=== PATIENT | female | born 1955 | race Caucasian/White ===

== ENCOUNTER 2020-12-19 15:45 | Emergency (ER) | payer OTHER, SELFPAY ==
[2020-12-19 15:46] VITALS: BP 123/77; PULSE 90; RESP 18; TEMP 36.4; O2SAT 98; BMI 23.0
--- NOTE | 2020-12-19 16:21 | ED_ITS ---
HPI - Allergic Reaction <Valentino Padron PA-C - Last Filed: 12/19/20 16:26> General Chief complaint: Allergic Reaction Stated complaint: Bee sting, allergic reaction Time Seen by Provider: 12/19/20 16:03 Source: patient and EMS Mode of arrival: EMS Limitations: no limitations History of Present Illness HPI narrative: Temi presents today with chief complaint of bee sting to her right hand which has caused right arm swelling and itching that took place approximately 4 hours ago. She took 50 mg of Benadryl approximately 3 hours ago which has slightly helped. The swelling has gotten worse so she called the parking line painter who then notified EMS and had her transferred here. [place] and is from [place]. She denies any history of anaphylaxis but does state that she gets allergic reactions from bee stings. She denies any throat tightness, shortness of breath, chest pain, difficulty swallowing, difficulty breathing, abdominal pain, nausea or any other acute concerns or complaints at this time. Related Data Previous Rx's Medication Instructions Recorded famotidine 40 mg tablet 40 mg PO DAILY #7 tab 12/19/20 fexofenadine 60 mg tablet 60 mg PO BID #14 tab 12/19/20 Allergies Allergy/AdvReac Type Severity Reaction Status Date / Time Sulfa (Sulfonamide Allergy Verified 12/19/20 15:46 Antibiotics) Review of Systems <Valentino Padron PA-C - Last Filed: 12/19/20 16:26> Review of Systems Narrative: As per HPI Patient History <Valentino Padron PA-C - Last Filed: 12/19/20 16:26> Social History Smoking Status: Never smoker Smoking Status: Never smoker alcohol intake frequency: 0-2 drinks per day Alcohol type: beer Substance Use Type: marijuana Exam <Valentino Padron PA-C - Last Filed: 12/19/20 16:26> Narrative Exam Narrative: Exam Narrative: Const General: cooperative, healthy appearing, comfortable, no acute distress, well developed and well groomed Nutritional Appearance: average body habitus Orientation: alert and oriented x3 HENMT Head: normal to inspection and atraumatic Ears: hearing grossly normal bilaterally Nose: external nose normal and nares normal Face and sinus: normal facial exam Mouth: Oral mucosa normal in appearance, no posterior oropharynx erythema, edema. Tongue normal. Neck Neck: normal visual inspection and supple Resp Effort & Inspection: normal respiratory effort, able to speak in complete sentences, no audible wheezes, not labored, no nasal flaring and no respiratory distress Neuro General: alert, oriented x3, gait normal, tone normal and moves all extremities Cognition: normal cognition Speech: speech normal Gait: normal gait Skin Area of erythema and edema to right hand and distal forearm. Full range of motion. No significant tenderness to the touch. Psych Appearance: grossly normal and well kempt Mental Status: mental status grossly normal Speech and Movement: speech and movement normal Mood: congruent mood Affect: normal affect Initial Vital Signs Initial Vital Signs: Vital Signs Temperature 97.5 F L 12/19/20 15:46 Pulse Rate 90 12/19/20 15:46 Respiratory Rate 18 12/19/20 15:46 Blood Pressure 123/77 12/19/20 15:46 Pulse Oximetry 98 12/19/20 15:46 <Elvira Edward DO - Last Filed: 12/21/20 15:43> Initial Vital Signs Initial Vital Signs: Vital Signs Temperature 97.5 F L 12/19/20 15:46 Pulse Rate 90 12/19/20 15:46 Respiratory Rate 18 12/19/20 15:46 Blood Pressure 123/77 12/19/20 15:46 Pulse Oximetry 98 12/19/20 15:46 Course <Valentino Padron PA-C - Last Filed: 12/19/20 16:26> Orders Ordered: Discontinued Medications Famotidine (Famotidine 20 Mg Tablet) 20 mg PO Q48H [facility] Last Admin: 12/19/20 16:29 Dose: 20 mg Documented by: MIREYA Vital Signs Vital signs: Vital Signs - 8 hr 12/19/20 15:46 Temperature 97.5 F L Pulse Rate 90 Respiratory Rate 18 Blood Pressure 123/77 Pulse Oximetry 98 <Elvira Edward DO - Last Filed: 12/21/20 15:43> Orders Ordered: Discontinued Medications Famotidine (Famotidine 20 Mg Tablet) 20 mg PO Q48H [facility] Last Admin: 12/19/20 16:29 Dose: 20 mg Documented by: MIREYA Vital Signs Vital signs: Vital Signs - 8 hr 12/19/20 15:46 Temperature 97.5 F L Pulse Rate 90 Respiratory Rate 18 Blood Pressure 123/77 Pulse Oximetry 98 MDM - Allergic Reaction <Valentino Padron PA-C - Last Filed: 12/19/20 16:26> [facility] Narrative Medical decision making narrative: Differential diagnosis includes anaphylaxis, cellulitis. No systemic signs of illness at this time. She has had previous bee sting reactions similar to this in the past. She denies any throat tightness, chest pain, shortness of breath or other symptoms that would be concerning for anaphylaxis. Recommend treating this like a large local reaction with strict ER return precautions. Patient verbalizes understanding and agrees to plan and has no further concerns at this time. Thank you A [id number] system was used with the dictation of this note. Please disregard any spelling or grammatical errors. Discharge Plan Departure Patient Disposition: Home Clinical Impression: Local reaction to bee sting Qualifiers: Encounter type: initial encounter Injury intent: accidental or unintentional Qualified Code(s): T63.441A - Toxic effect of venom of bees, accidental (unintentional), initial encounter Instructions: DI for Anaphylaxis Activity Restrictions/Additional Instructions: It was a pleasure to meet you this afternoon. Please use the antihistamines as discussed and apply ice to help decrease the swelling. If you experience throat tightness, shortness of breath, difficulty breathing or have any additional concerns or complaints do not hesitate to return immediately for re-evaluation. Thank you Valentino Padron PA-C Prescriptions: New famotidine 40 mg tablet 40 mg PO DAILY Qty: 7 RF: 0 fexofenadine 60 mg tablet 60 mg PO BID Qty: 14 RF: 0 <Elvira Edward DO - Last Filed: 12/21/20 15:43> Cosign ED Attending Cosignature Attestation: I was immediately available in the department for consultation. Documentation has been reviewed.
[2020-12-19] MEDS: FAMOTIDINE 20 MG TABLET PO (16:29)
[2020-12-19 16:47] VITALS: BP 113/73; PULSE 93; TEMP 37; O2SAT 98
== END 2020-12-19 16:48 | disposition home or self-care (01) ==
PROVIDERS: Emergency Provider Physician Assistant
DX: T63.441A Toxic effect of venom of bees, accidental (unintentional), initial encounter (principal)
CPT/HCPCS: 99283; A9270